=== PATIENT | female | born 2000 | race Caucasian/White ===

== ENCOUNTER 2020-10-30 16:57 | Emergency (ER) | payer BC ==
[~2020-10-30] VITALS: Ht 165.1 cm; Wt 62.2 kg
[2020-10-30] MEDS ORDERED: IV NORMAL SALINE 1000ML BAG 1,000 ML IV SCH (17:15)
--- NOTE | 2020-10-30 17:18 | PHYS DOC ---
General Adult EDM: Chief Complaint: OVERDOSE HPI: HPI: Patient is a 20 year old male who presents with states that he has been feeling suicidal for the last week. States about 4:00 this afternoon took 120+ Tylenol tablets. The patient states they are unaware of their 500 mg tablets or not. Patient states that they have tried suicide in the past such as hanging, drowning, overdose, cutting. Patient states he was recently just placed on Prozac. Patient states that he is having abdominal pain and vomited once and is having some nausea. Patient states that he does have a therapist at [facility]. Patient is currently transitioning into being a male from a female. Patient states he is taking testosterone. Patient denies shortness of breath, chest pain, diarrhea, cough, headache, dizziness, syncope. Review of Systems: Review of Systems: Constitutional: Denies fever or chills. [] Eyes: Denies change in visual acuity. [] HENT: Denies nasal congestion or sore throat. [] Respiratory: Denies cough or shortness of breath. [] Cardiovascular: Denies chest pain or edema. [] GI: +abdominal pain, +nausea, +vomiting, bloody stools or diarrhea. [] : Denies dysuria. [] Musculoskeletal: Denies back pain or joint pain. [] Integument: Denies rash. [] Neurologic: Denies headache, focal weakness or sensory changes. [] Endocrine: Denies polyuria or polydipsia. [] Lymphatic: Denies swollen glands. [] Psychiatric: + SI, +depression, + Tylenol overdose, +anxiety. [] Heart Score: C/O Chest Pain: No Risk Factors: Risk Factors: DM, Current or recent (<one month) smoker, HTN, HLP, family history of CAD, obesity. Risk Scores: Score 0 - 3: 2.5% MACE over next 6 weeks - Discharge Home Score 4 - 6: 20.3% MACE over next 6 weeks - Admit for Clinical Observation Score 7 - 10: 72.7% MACE over next 6 weeks - Early Invasive Strategies Current Medications: Current Medications Medications (Trade) Dose Ordered Sig/Raya Start Time Stop Time Status Last Admin Dose Admin Sodium Chloride 1,000 ml @ 1,000 mls/hr Q1H 10/30/20 17:15 10/30/20 18:14 UNV Allergies: Allergies: Allergies Coded Allergies Type Severity Reaction Last Updated Verified No Known Drug Allergies 10/30/20 No Physical Exam: PE: Constitutional: Well developed, well nourished, no acute distress, non-toxic appearance. [] HENT: Normocephalic, atraumatic, bilateral external ears normal, oropharynx luis st, no oral exudates, nose normal. [] Eyes: PERRLA, EOMI, conjunctiva normal, no discharge. [] Neck: Normal range of motion, no tenderness, supple, no stridor. [] Cardiovascular:Heart rate regular rhythm, no murmur [] Lungs & Thorax: Bilateral breath sounds clear to auscultation [] Abdomen: Bowel sounds normal, soft, no tenderness, no masses, no pulsatile masses. [] Skin: Warm, dry, no erythema, no rash. [] Back: No tenderness, no CVA tenderness. [] Extremities: No tenderness, no cyanosis, no clubbing, ROM intact, no edema. [] Neurologic: Alert and oriented X 3, normal motor function, normal sensory function, no focal deficits noted. [] Psychologic: Affect normal, judgement normal, mood normal. [] Normal physical exam EKG: EK and read by Dr Cheng as Sinus arrhythmia but no stemi[] Radiology/Procedures: Radiology/Procedures: [] Course & Med Decision Making: Course & Med Decision Making Pertinent Labs and Imaging studies reviewed. (See chart for details) See HPI. Alert and oriented x4. Ambulatory steady gait. Speaks full clear sentences. Abdomen is soft and nontender. PAT team called and Poison control called by Nursing. Blood work is unremarkable. Two separate acetaminophen and salicylate levels are drawn and they are both negative for intake. Urinalysis shows infection. I did give her Rocephin. Patient will be placed on antibiotic. Patient remains alert and oriented and cooperative. Vital signs remained stable. Patient denies any abdominal pain nausea or vomiting. Patient has not had any nausea vomiting since been here. Patient has been p.o. challenged. Patient is stable and in no distress. Tammie from PAT team has come and spoke to the patient and the parents. Patient lives with his parents. Patient is discharged home with a safety plan and to follow-up with therapist Sunday. [] Jigar Disclaimer: Jigar Disclaimer: This electronic medical record was generated, in whole or in part, using a voice recognition dictation system. Departure Departure Impression: Primary Impression: Suicidal ideations Additional Impression: UTI (urinary tract infection) Qualified Codes: N39.0 - Urinary tract infection, site not specified; R31.9 - Hematuria, unspecified Disposition: 01 HOME / SELF CARE / HOMELESS Condition: STABLE Patient Instructions: Suicidal Feelings, How to Help Yourself, Urinary Tract Infection Additional Instructions: Follow-up with your therapist as soon as possible. Drink plenty of fluids. Follow safety plan. Scripts Cephalexin (CEPHALEXIN) 500 Mg Capsule 1 CAP PO TID, #30 CAP Prov: AARON BILLY APRN 10/30/20 AARON BILLY APRN Oct 30, 2020 17:18
[2020-10-30 17:34] LABS: CALCIUM 9.1 mg/dL (8.5-10.1); CREATININE 0.8 mg/dL (0.7-1.3); GFR 123.2; POTASSIUM 3.7 mmol/L (3.5-5.1)
[2020-10-30 17:35] LABS: SALIC < 2.8 mg/dL (2.8-20.0)
[2020-10-30 17:38] LABS: ACETAMIN < 2 mcg/ml (10-30); ETHANOL < 10 mg/dL (0-10)
[2020-10-30 17:40] LABS: ALBUMIN 3.9 g/dL (3.4-5.0); ALBUMIN/GLOBULIN RATIO 1.2 (1.0-1.7); TOTAL PROTEIN 7.1 g/dL (6.4-8.2)
[2020-10-30] MEDS ORDERED: ONDANSETRON PF 4 MG/2 ML VIAL. IVP ONE (18:00)
--- NOTE | 2020-10-30 18:04 | EKG ---
[facility] [address] [place] [address] Test Date: 2020-10-30 Test Time: 17:40:39 Pat Name: YESSY STANFORD Department: Room: Gender: Protozoologist: : [id number] Requested By: AARON BILLY Order Number: [id number] Reading MD: Measurements Intervals [place] Rate: 71 P: 43 PA: 170 QRS: 45 QRSD: 88 T: 57 QT: 356 QTc: 391 Interpretive Statements SINUS ARRHYTHMIA OTHERWISE NORMAL ECG RI6.02 No previous ECG available for comparison
[2020-10-30 18:15] LABS: PROTHROMBIN TIME PATIENT 13.7 SEC (11.7-14.0)
[2020-10-30 18:36] LABS: BASO % 0 % (0-3); EOS % 0 % (0-3); HEMATOCRIT 36.2 % (39.0-53.0); HEMOGLOBIN 11.9 g/dL (13.0-17.5); LYMPH # 1.4 x10^3/uL (1.0-4.8); LYMPH % 18 % (24-48); MEAN CORPUSCULAR HEMOGLOBIN 26 pg (25-35); MEAN CORPUSCULAR HGB CONC 33 g/dL (31-37); MEAN CORPUSCULAR VOLUME 80 fL (79-100); MONO # 0.5 x10^3/uL (0.0-1.1); MONO % 6 % (0-9); NEUT # 6.1 x10^3/uL (1.8-7.7); NEUT % 75 % (31-73); PLATELET COUNT 246 x10^3/uL (140-400); RED BLOOD COUNT 4.52 x10^6/uL (4.30-5.70); RED CELL DISTRIBUTION WIDTH 14.6 % (11.5-14.5); WHITE BLOOD COUNT 8.1 x10^3/uL (4.0-11.0)
[2020-10-30 18:40] LABS: BILIRUBIN,URINE NEGATIVE (NEG); CLARITY,URINE TURBID; COLOR,URINE YELLOW; NITRITE,URINE POSITIVE (NEG); PH,URINE 7.5 (<5.0-8.0); PROTEIN,URINE 100 mg/dL (NEG-TRACE)
[2020-10-30 18:48] LABS: BARBITURATES NEG (NEG); BENZODIAZEPINES NEG (NEG); CANNABINOIDS NEG (NEG); COCAINE NEG (NEG); METHADONE NEG (NEG); OPIATES NEG (NEG); PHENCYCLIDINE NEG (NEG)
[2020-10-30 18:50] LABS: AMPHETAMINE/METHAMPHETAMINE NEG (NEG)
[2020-10-30 19:03] LABS: RBC,URINE OCC /HPF (0-2)
[2020-10-30 19:34] LABS: BACTERIA,URINE FEW /HPF (0-FEW)
[2020-10-30 19:35] LABS: AMORPHOUS SEDIMENT,UR PRESENT /HPF
[2020-10-30 20:45] LABS: ACETAMIN < 2 mcg/ml (10-30)
[2020-10-30] MEDS ORDERED: cefTRIAXone IV Push 1 GM VIAL. IVP ONE (21:00)
[2020-10-30 22:09] LABS: SALIC < 2.8 mg/dL (2.8-20.0)
[2020-10-30] MEDS ORDERED: CEPH500C PO (22:36)
[2020-10-30 23:03] VITALS: BP 120/72
== END 2020-10-30 23:10 | disposition home or self-care (01) ==
LOC: ER 16:57 → EDSEX 16:57 → ER 23:10
DX: R45.851 Suicidal ideations (principal); Z20.822 Contact with and (suspected) exposure to COVID-19; N39.0 Urinary tract infection, site not specified; R31.9 Hematuria, unspecified
CPT/HCPCS: 36415; 80053; 80307; 80329; 81001; 85025; 85610; 85730; 87086; 87426; 93005; 96361; 96374; 96375; 99285; G0480; J0696; J2405; J7030; U0003; U0005

== ENCOUNTER 2020-11-12 16:04 | Emergency (ER) | payer BC ==
[~2020-11-12 16:04] MED LIST: CEPH500C PO
== END 2020-11-12 16:48 | disposition left against medical advice (07) ==
LOC: ER 16:04
DX: R45.851 Suicidal ideations (principal); Z53.21 Procedure and treatment not carried out due to patient leaving prior to being seen by health care provider